=== PATIENT | female | born 1960 | race Caucasian/White ===

== ENCOUNTER 2016-07-14 08:41 | Day surgery (SDC) | payer MEDICAID ==
[~2016-07-14] VITALS: Ht 165.1 cm; Wt 114.0 kg
--- NOTE | 2016-07-21 09:10 | OR ---
ADMIT: 07/14/2016 RM/LOC: [facility] MR#: [id number] [address] SUSHMA STAUFFER [address] [place] [address] Operative/Delivery Room Report SEX: F AGE: 55 : 1960 Corrected: 07/15/2016 0635 [facility] SURGERY DATE: 07/14/2016 SURGEON: Monroe Roth MD PREOPERATIVE DIAGNOSIS: Ventral incisional hernia. POSTOPERATIVE DIAGNOSIS: Ventral incisional hernia. PROCEDURE: Open repair of ventral incisional hernia with 6.4 cm Ventralex mesh. ASSISTING: LES Sanderson, whose assistance was necessary for tissue retraction given the depth of the subcutaneous tissue and exposure of the operative field. ANESTHESIA: General endotracheal. ESTIMATED BLOOD LOSS: 10 mL. DESCRIPTION OF PROCEDURE: The patient was taken to the operating room and placed supine on the operating room table. General anesthesia was established. The abdomen was prepped and draped in the standard surgical fashion. A transverse incision was made overlying the hernia defect in the upper abdomen just to the right of midline. Dissection proceeded through the subcutaneous tissue to the hernia sac. The hernia sac was then dissected circumferentially back to the fascial margins. The sac was opened, and there was chronically incarcerated omentum present. The sac was excised from the fascial margins circumferentially and sent as specimen. The large piece of omentum could not be completely reduced. A portion of this was excised with cautery and sent as ADMIT: 07/14/2016 RM/LOC: [facility] MR#: [id number] [address] SUSHMA STAUFFER [address] [place] [address] Operative/Delivery Room Report SEX: F AGE: 55 : 1960 additional specimen. The remainder of the omentum was able to be reduced through the defect. The defect measured 2 cm in diameter. A 6.4 cm Ventralex mesh was placed intraabdominally with good overlap of the defect. This was secured circumferentially in a transfascial manner with 0 silk suture. This provided good overlap with no tension on the repair. The deep tissue in the subcutaneous space was closed with 2-0 Vicryl suture. Skin edges were approximated with 4-0 Monocryl in a subcuticular fashion and Dermabond. Local anesthetic was injected at the incision. Sponge, needle, and instrument counts were correct at the end of the case. The patient tolerated the procedure well and transferred to the recovery area in stable condition. Monroe Roth MD/ derick JOB #: [id number] CC: Monroe Roth, Attending Physician Mara Farnsworth, Family Physician Corrected: 07/15/2016 0635 [id number]
== END 2016-07-14 14:45 | disposition home or self-care (01) ==
LOC: SSS 08:41
PROC: 0WUF0JZ Supplement Abdominal Wall with Synthetic Substitute, Open Approach (ICD-10-PCS; principal; 2016-07-14)
DX: K43.0 Incisional hernia with obstruction, without gangrene (principal); G47.30 Sleep apnea, unspecified; E66.01 Morbid (severe) obesity due to excess calories; E03.9 Hypothyroidism, unspecified; N02.8 Recurrent and persistent hematuria with other morphologic changes; Z88.0 Allergy status to penicillin; Z88.6 Allergy status to analgesic agent; Z88.8 Allergy status to other drugs, medicaments and biological substances; Z79.899 Other long term (current) drug therapy; Z98.890 Other specified postprocedural states; Z98.51 Tubal ligation status